=== PATIENT | female | born 1970 | race Caucasian/White ===

== ENCOUNTER 2020-04-13 11:21 | Emergency (ER) | payer OTHER, SELFPAY ==
--- NOTE | ~2020-04-13 | XR_ITS ---
EXAMINATION: XR knee LT 3V DATE: 04/13/2020 11:53 INDICATION: Left knee pain. TECHNIQUE: 3 views of left knee were obtained. COMPARISON: None. FINDINGS: Bone alignment is normal. There is a nondisplaced avulsion fracture of the intercondylar em inence of proximal tibia with involvement of the medial condyle articular surface. There is mild tric ompartmental osteoarthritis. There is a large knee joint effusion. IMPRESSION: 1. Nondisplaced avulsion fracture of the intercondylar eminence of proximal tibia with involvement of the medial condyle articular surface. 2. Mild left knee osteoarthritis. 3. Large knee joint effusion. Reviewed, dictated and finalized at location A. IMPRESSION: 1. Nondisplaced avulsion fracture of the intercondylar eminence of proximal tib ia with involvement of the medial condyle articular surface. 2. Mild left knee osteoarthritis. 3. Large knee joint effusion.
[2020-04-13 11:28] VITALS: BP 164/86; PULSE 76; RESP 18; TEMP 36.7; O2SAT 97
--- NOTE | 2020-04-13 11:39 | ED.GENADULT ---
HPI - General Adult General Chief complaint: Extremity Injury, Lower Stated complaint: knee injury Time Seen by Provider: 04/13/20 11:31 Source: patient Mode of arrival: ambulatory Limitations: no limitations History of Present Illness HPI narrative: Patient is a 50-year-old female who was knocked down by her dog just prior to arrival injuring the left knee noting that she is now having difficulty bearing weight pain decreases with rest and inactivity but worsens with activity and movement. Patient denies other injury or complaint has not anything for pain and on arrival is in the room in no distress Related Data Home Medications Medication Instructions Recorded Confirmed hydrochlorothiazide 04/13/20 losartan-hydrochlorothiazide tablet 04/13/20 sertraline mg 04/13/20 simvastatin mg 04/13/20 Allergies Allergy/AdvReac Type Severity Reaction Status Date / Time No Known Allergies Allergy Mild Unverified 04/13/20 11:33 Review of Systems Review of Systems: All systems reviewed & are unremarkable except as noted in HPI and below PMFSH Past Medical History Medical History (Updated 04/13/20 @ 14:16 by Mehdi Mustafa PA-C) Obese Social History Social History (Updated 04/13/20 @ 11:41 by Mehdi Mustafa PA-C) Smoking status: Never smoker Gender identity (if verbalized by the patient): Female Exam Narrative: Exam Narrative: GENERAL: Well-appearing, well-nourished, and in no acute distress. HEAD: Normocephalic, atraumatic. EYES: PERRLA and EOMI. ENT: Nares clear, no rhinorrhea or epistaxis. Mucous membranes moist. EXTREMITIES: Tenderness of the left knee joint no deformities noted SKIN: Warm, dry, no rash. NEURO: No focal deficits. Alert and oriented x3. Neurovascularly intact PSYCH: Normal mood and affect. Course Course Emergency Course: Patient in the room at this time aware of case findings treatment plan diagnosis placed in immobilizer will follow with orthopedic surgery Consultations Consultation #1: Discussed case with orthopedic surgery who will follow patient in clinic Date: 04/13/20 Time: 14:16 Vital Signs Vital signs: Vital Signs Temperature 98.1 F 04/13/20 11:28 Pulse Rate 76 04/13/20 11:28 Respiratory Rate 18 04/13/20 11:28 Blood Pressure 164/86 H 04/13/20 11:28 Pulse Oximetry 97 04/13/20 11:28 Temperature 98.1 F 04/13/20 11:28 Pulse Rate 76 04/13/20 13:09 Respiratory Rate 18 04/13/20 13:09 Blood Pressure 138/90 04/13/20 13:09 Pulse Oximetry 97 04/13/20 13:09 Medical Decision Making MDM Narrative Medical decision making narrative: Patients injury or pain is consistent with musculoskeletal etiology. No signs of neurological or vascular compromise on exam. Compartments and tisues are soft without signs of compartment syndrome. Pain is felt appropriate for further evaluation on an outpatient basis. Patient will follow with orthopedic surgery Vital Signs Vital Signs: Vital Signs Temperature 98.1 F 04/13/20 11:28 Pulse Rate 76 04/13/20 11:28 Respiratory Rate 18 04/13/20 11:28 Blood Pressure 164/86 H 04/13/20 11:28 Pulse Oximetry 97 04/13/20 11:28 Temperature 98.1 F 04/13/20 11:28 Pulse Rate 76 04/13/20 13:09 Respiratory Rate 18 04/13/20 13:09 Blood Pressure 138/90 04/13/20 13:09 Pulse Oximetry 97 04/13/20 13:09 Discharge Plan Discharge Clinical Impression: Closed fracture of left knee region Patient Disposition: Home, Self-Care Condition: Stable Instructions: Antibiotic Form, Leg Fracture (ED) Additional Instructions: Wear brace and use crutches. No weight on the affected leg. Pain medication as needed and directed. Follow-up with orthopedic surgery in the next 3 days to set up for reevaluation. Return if symptoms worsen or concerns or any increase in redness swelling pain or fever over 100.5 or any loss of feeling or function in the extremity. Rest and elevation of the extremity above
[2020-04-13 13:09] VITALS: BP 138/90; PULSE 76; RESP 18; O2SAT 97
[2020-04-13 15:02] VITALS: BP 138/75; PULSE 78; RESP 16; O2SAT 100
== END 2020-04-13 15:03 | disposition home or self-care (01) ==
PROVIDERS: Emergency Provider Emergency Medicine; PCP Internal Medicine
DX: S82.115A Nondisplaced fracture of left tibial spine, initial encounter for closed fracture (principal); M17.12 Unilateral primary osteoarthritis, left knee; E66.9 Obesity, unspecified; Z68.32 Body mass index [BMI] 32.0-32.9, adult; W54.1XXA Struck by dog, initial encounter
CPT/HCPCS: 73562; 99284

== ENCOUNTER 2020-07-13 08:15 | Outpatient (RCR) | payer OTHER, SELFPAY ==
--- NOTE | 2020-06-15 10:08 | PTOPEVAL ---
Thank you for referring Wendi Ramirez to [facility].? The patient is scheduled to be seen for therapy? 2-3 x/week for 6 weeks. Please review, sign, date and return this plan of care TOMY. I agree with and certify that the following plan of care is medically necessary. Referring Physician Date Attending Provider: Honorio Gaona MD *PT Outpatient Evaluation Start: 06/15/20 08:54 Freq: Status: Active Protocol: Document 06/15/20 08:55 DEMETRI (Rec: 06/15/20 09:48 DEMETRI [id number]) Therapy Assessment Status Assessment Status Assessment Status Evaluation Outpatient Past Medical History Past Medical History Source of Past Medical History Patient,Recalled from Previous Visit, Confirmed with Patient /Family Neurological History Hx Neurological Disorders No Significant History Cardiovascular History Hx Hypertension Yes Respiratory History Hx Respiratory Disorders No Significant History Gastrointestinal History Hx Gastrointestinal Disorders No Significant History Genitourinary History Hx Genitourinary Disorders No Significant History Musculoskeletal History Hx Orthopedic Surgery Yes: RTC tear with s/p shoulder SX Hematological History Hx Hematological Disorders No Significant History Endocrine History Hx Endocrine Disorders No Significant History Evaluation Information Problem Diagnosis left tibia Fx, MCL tear Onset 04/13/20 Additional Evaluation Detail She was in an immobilizer for 6 wks. She walked into therapy with 1 crutch on left side Subjective Information She was hit in the leg by her Query Text:As Reported By Patient/ dog hitting her left knee, Family then she landed on left knee on the ground. She went to ER due to knee feeling unstable. She was in the knee brace, WBAT and crutches for 6 wks. She has progressed herself to 1 crutch. She cont to have stiffness, decreased knee motion, and difficulty with standing and walking. She is limiting WB on left LE with steps. 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 She has not tried damien
--- NOTE | 2020-06-18 15:57 | PCPTNOTE ---
Patient called & cancelled scheduled appointment this date due to unable to schedule transportation for granddaughter.
--- NOTE | 2020-07-11 11:24 | PCPTNOTE ---
pt cancelled her re-eval today and rescheduled for 06/12/20.
--- NOTE | 2020-07-13 08:55 | PTOPEVAL ---
Thank you for referring Wendi Ramirez to [facility].? Pt has been seen for 7 therapy visits to address impairments related to knee/leg injury. She demonstrates improved LE strength, knee range and performance with functional task. She achieved 90% of her therapy goals at this time. She is indep with her HEP and performing desired daily activities DC skilled therapy services at this time. Please review, sign, date and return this plan of care TOMY. I agree with and certify that the following plan of care is medically necessary. Referring Physician Date Admitting Provider: Attending Provider: Honorio Gaona MD Referring Provider: *PT Outpatient Evaluation Start: 06/15/20 08:54 Freq: Status: Active Protocol: Document 07/13/20 08:16 DEMETRI (Rec: 07/13/20 08:55 DEMETRI [id number]) Therapy Assessment Status Assessment Status Assessment Status Re-evaluation/Discharge Note Evaluation Information Problem Diagnosis left tibia Fx, MCL tear Onset 04/13/20 Additional Evaluation Detail She was in an immobilizer for 6 wks. 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 Subjective Information She reports stiffness in the Query Text:As Reported By Patient/ morning. She is walking Family without restrictions, no problems with steps or outside walking. 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 She denies any problems with yardwork yet . She report occasional swelling on top of knee region at night, but improved with ice and elevation. Pain Assessment Timing of Pain Assessment Timing of Pain Assessment Re-assessment Pain Scale Pain Scale Used Numeric (1 - 10) Self Report Pain Assessment Left Knee(s) Reported Pain Level 0 Pain Score Pain Score 0: Self Report Lower Extremity Range of Motion Knee Range of Motion Left Knee Flexion Range of Motion - Active 110 Knee Extension Range of Motion - Passive 0 Knee Range of Motion Limitations Edema,Pain,Soft Tissue Restriction Lower Extremity Muscle Strength Testing Hip Strength Left Hip Flexion Strength 5 Normal Hip Extension Strength 5 Normal Hip Abduction Strength 4- Good - Knee Strength Left Knee Flexion Strength 5 Normal Knee Extension Strength 5 Normal Extremity Circumference Assess
== END 2020-07-13 11:00 | disposition home or self-care (01) ==
LOC: ANHPT 08:15
PROVIDERS: PCP Internal Medicine; Visit Provider Orthopaedic Surgery
DX: S82.202D Unspecified fracture of shaft of left tibia, subsequent encounter for closed fracture with routine healing (principal)
CPT/HCPCS: 97110; 97112; 97140; 97161

== ENCOUNTER 2020-12-20 11:57 | Emergency (ER) | payer OTHER, SELFPAY ==
--- NOTE | ~2020-12-20 | XR_ITS ---
EXAMINATION: XR shoulder RT min 2V EXAM DATE: 12/20/2020 12:53 INDICATION: Initial encounter following injury, with pain of the right shoulder. TECHNIQUE: The following right shoulder projections obtained: frontal projection with internal rotati on, frontal projection with external rotation, Grashey, and scapular Y view (4+ views). There is no prior study for comparison. FINDINGS: There are no acute fractures identified. 2 metallic foreign bodies which are most likely ro tator cuff repair anchors, one within the right humeral head as would be expected, the other projecti ng between the humeral head in the acromion, likely dislodged from intended intraosseous location. Un certain whether or not this is acute or chronic finding. Wide appearing acromioclavicular joint which could also be postoperative. IMPRESSION: 1. Suspect dislodged right rotator cuff repair anchor, age indeterminate. 2. No fracture. Reviewed, dictated and finalized at location A.
[2020-12-20 12:24] VITALS: BP 140/72; PULSE 67; RESP 18; TEMP 36.2; O2SAT 97
--- NOTE | 2020-12-20 13:22 | ED.UPPEXIN ---
HPI - Extremity Injury (Upper) General Chief Complaint: Extremity Injury, Upper Stated Complaint: Rt arm injury Time Seen by Provider: 12/20/20 12:42 Source: patient Mode of arrival: ambulatory Limitations: no limitations History of Present Illness HPI narrative: This is a 50 year old female that presents to the ER for right shoulder pain after an injury today. Reports she tripped and fell. She caught herself with her right wrist. Reports since she has had right shoulder pain. Reports history of rotator cuff repair to this shoulder a couple of years ago. Reports pain feels similar to when her rotator cuff was acting up. Reports decreased ROM due to pain. Denies hitting her head, loss of consciousness, other injuries, or numbness. Related Data Home Medications Medication Instructions Recorded Confirmed hydrochlorothiazide 04/13/20 05/31/20 sertraline mg 04/13/20 05/31/20 simvastatin mg 04/13/20 05/31/20 aspirin 81 mg tablet,delayed 81 mg PO DAILY 04/17/20 05/31/20 release losartan 50 mg tablet 50 mg PO DAILY 04/17/20 05/31/20 Allergies Allergy/AdvReac Type Severity Reaction Status Date / Time No Known Allergies Allergy Mild Unverified 04/13/20 11:33 Review of Systems Review of Systems: Narrative: CONSTITUTIONAL: Denies fever MUSCULOSKELETAL: Reports joint pain, and myalgia. NEUROLOGIC: Denies numbness All systems reviewed & are unremarkable except as noted in HPI and below PMFSH Past Medical History Medical History Hypertension Obese Family History Family History Other Alzheimer disease Lupus Migraine Social History Social History Smoking status: Never smoker Gender identity (if verbalized by the patient): Female Exam Narrative: Exam Narrative: GENERAL: Well-appearing, well-nourished, and in no acute distress. HEAD: Normocephalic, atraumatic. EYES: EOMI. CHEST: Clear to auscultation. No respiratory distress. No wheezes rales or rhonchi HEART: Regular rate and rhythm. No murmur heard. Normal peripheral pulses. EXTREMITIES: Normal range of motion, except decreased active range of motion of the right shoulder due to pain. No edema or obvious deformity. Normal sensation. Normal radial pulses SKIN: Warm, dry, no rash. NEURO: No focal deficits. Alert and oriented x3. PSYCH: Normal mood and affect Course Consultations Consultation #1: Spoke with Dr. Garcia about patient and work-up. Would like patient placed in a sling and will follow-up in clinic. Date: 12/20/20 Time: 13:48 Vital Signs Vital signs: Vital Signs Temperature 97.1 F L 12/20/20 12:24 Pulse Rate 67 12/20/20 12:24 Respiratory Rate 18 12/20/20 12:24 Blood Pressure 140/72 12/20/20 12:24 Pulse Oximetry 97 12/20/20 12:24 Temperature 97.1 F L 12/20/20 12:24 Pulse Rate 67 12/20/20 12:24 Respiratory Rate 18 12/20/20 12:24 Blood Pressure 140/72 12/20/20 12:24 Pulse Oximetry 97 12/20/20 12:24 MDM - Extremity Injury (Upper) MDM Narrative Medical decision making narrative: Patient presents to the emergency department for right shoulder pain after a fall today. Right shoulder x-ray shows a dislodged rotator cuff repair anchor. No fractures. Spoke with Dr. Garcia about patient and work-up. Would like patient placed in a sling and will follow-up in clinic. Patient is stable and felt appropriate for further outpatient evaluation. She was given warnings to return to the ER Imaging Data Radiologist's impression: ITS Impressions Shoulder X-Ray 12/20/20 12:58 IMPRESSION: 1. Suspect dislodged right rotator cuff repair anchor, age indeterminate. 2. No fracture. Critical Care Time Critical Care Time Critical Care Time: No Discharge Plan Discharge Clinical Impression: Disorder of right rotator cuff Patient
[2020-12-20 13:54] VITALS: BP 122/78; PULSE 78; RESP 18; O2SAT 99
== END 2020-12-20 13:56 | disposition home or self-care (01) ==
PROVIDERS: Emergency Provider Emergency Medicine; PCP Internal Medicine
DX: M25.511 Pain in right shoulder (principal); T84.120A Displacement of internal fixation device of right humerus, initial encounter; I10 Essential (primary) hypertension; E66.9 Obesity, unspecified; Z68.32 Body mass index [BMI] 32.0-32.9, adult; Z79.82 Long term (current) use of aspirin; W01.0XXA Fall on same level from slipping, tripping and stumbling without subsequent striking against object, initial encounter
CPT/HCPCS: 73030; 99283; A4565

== ENCOUNTER 2021-09-10 09:02 | Emergency (ER) | payer OTHER, SELFPAY ==
--- NOTE | 2021-09-10 09:05 | ED.EYEPROB ---
HPI - Eye Problem General Chief complaint: Eye Problems Stated complaint: left eye red Time Seen by Provider: 09/10/21 09:05 Source: patient and RN notes reviewed History of Present Illness HPI Narrative: Patient is a 51-year-old female who presents the urgent care with complaints of left eye redness and irritation. Patient states that it started approximately 9 days ago and she has been taking Benadryl and using [id number] Visine without much relief. Patient states that she has some blurry vision but is able to see out of the eye. Denies of any known trauma or injury to the eye. Denies of any matting. No other acute complaints. No acute distress noted. Patient aware of the plan of care. Some parts of this dictation were generated by voice recognition software and may contain typographical and/or grammatical inaccuracies. Related Data Home Medications Medication Instructions Recorded Confirmed hydrochlorothiazide 12.5 mg PO DAILY 04/13/20 05/31/20 sertraline 100 mg PO DAILY 04/13/20 09/10/21 simvastatin 40 mg PO DAILY 04/13/20 09/10/21 aspirin 81 mg tablet,delayed 81 mg PO DAILY 04/17/20 09/10/21 release losartan 50 mg tablet 50 mg PO DAILY 04/17/20 09/10/21 Allergies Allergy/AdvReac Type Severity Reaction Status Date / Time No Known Allergies Allergy Mild Unverified 04/13/20 11:33 Review of Systems Review of Systems: CONSTITUTIONAL: Denies fever, chills, or sweats. EYES: Reports of irritation and redness to the left eye ENT: Denies rhinorrhea, congestion, sore throat, or otalgia. CARDIOVASCULAR: Denies chest pain, palpitations, or edema. RESPIRATORY: Denies cough or dyspnea. GASTROINTESTINAL: Denies abdominal pain, nausea, vomiting, or diarrhea. GENITOURINARY: Denies dysuria or hematuria. SKIN: Denies rash or itching. MUSCULOSKELETAL: Denies back pain, joint pain, or myalgia. NEUROLOGIC: Denies headache, numbness, or weakness. All other systems reviewed are negative, except as documented in HPI. [facility] Past Medical History Medical History Hypertension Obese Family History Family History Other Alzheimer disease Lupus Migraine Social History Social History Smoking status: Never smoker Gender identity (if verbalized by the patient): Female Comments At the time of my signature, I reviewed and agree with the nursing past medical, surgical, social, and family history. There is no relevant family history pertinent to the patient complaint. Exam Narrative: GENERAL: This is a well-nourished, well-developed patient, in no apparent distress. HEAD: normocephalic, atraumatic. EYES: PERRL. right Sclera clear/white. mild to moderate left injected conjunctiva and sclera. no obvious trauma or injury. Vision is grossly intact. EARS: External ears normal, auditory canals clear and without drainage, TMs normal without perforation. Hearing grossly intact. NOSE: External nose normal with no obvious nasal discharge, nares without redness, no rhinorrhea. THROAT: Mucous membranes moist NECK: Neck supple CARDIOVASCULAR: Regular rate and rhythm without murmurs, gallops, or rubs. RESPIRATORY: Clear to auscultation. Breath sounds equal bilaterally. No wheezes, rales, or rhonchi. SKIN: warm, intact with no suspicious lesions or rash, good texture and turgor. NEURO: awake, alert, and oriented to person, place and time. There were no obvious focal neurologic abnormalities. EXTREMITIES: No clubbing, cyanosis, or edema. Course Course Level of Care: Express Care Visit Vital Signs Vital signs: Vital Signs Temperature 97.6 F 09/10/21 09:21 Pulse Rate 68 09/10/21 09:21 Respiratory Rate 18 09/10/21 09:21 Blood Pressure 131/82 09/10/21 09:21 Pulse Oximetry 99 09/10/21 09:21 Temperature 97.6 F 09/10/21 09:21 Pulse Rate 68 09/10/21
[2021-09-10 09:21] VITALS: BP 131/82; PULSE 68; RESP 18; TEMP 36.4; O2SAT 99
== END 2021-09-10 10:07 | disposition home or self-care (01) ==
PROVIDERS: Emergency Provider Nurse Practitioner Family; PCP Internal Medicine
DX: H10.9 Unspecified conjunctivitis (principal); I10 Essential (primary) hypertension; E66.9 Obesity, unspecified; Z68.32 Body mass index [BMI] 32.0-32.9, adult
CPT/HCPCS: 99213; G0463

== ENCOUNTER 2025-07-25 10:35 | Emergency (ER) | payer OTHER, SELFPAY ==
--- NOTE | ~2025-07-25 | XR_ITS ---
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 Findings: No acute fracture or malalignment. No significant degenerative changes. Soft tissues unremarkable. Impression: No acute fracture or malalignment. Reviewed, dictated and finalized at location P. AGING ENGINEER Impression: No acute fracture or malalignment.
[2025-07-25 10:45] VITALS: BP 142/79; PULSE 72; RESP 16; TEMP 36.1; O2SAT 98
--- OUTSIDE RECORDS SUMMARY | 2025-07-25 11:31 | XMS_ITS | Clinical Summary ---
Author Organization [facility] Address [address] [place] [address] Care Team Providers Care Sales Rep Name Role Phone Kelsie Huffman MD Primary Care Provider [phone] Source Comments [facility],non-[facility] Affiliates and Associated Physician Practices is amultiple site organization consisting of ambulatory clinics and hospital sitesin [place], [place], [place] and [place]. This disclosure is being madepursuant to the Care Everywhere program and may not contain all information available regarding this patient. Last updated 18.[facility] License [employer]dy Allergies Active Allergy Reactions Criticality Noted Date Comments Egg Shells Diarrhea High 10/06/2019 Medications * Be aware that medications may not be up to date on this document. Alwaysverify current medications with the patient. hydroCHLOROthia zide (HYDRODIURIL) 12.5 MG TABS hydrochlorot tab 12.5mghydrochlor othiazide Active losartan (COZAAR) 50 MG tablet losartan potassium/hydroc hlorothiazide 50-12.5 mg tabs Active sertraline (ZOLOFT) 100 MG tablet sertraline hcl 100 mg tabs Active simvastatin (ZOCOR) 40 MG tablet simvastatin tab 40mgsimvastatin Active metFORMIN (Glucophage) 500 MG tablet Take 1 (one) tablet by mouth once daily 3 Active tiZANidine (Zanaflex) 4 MG tablet Take 1 (one) tablet by mouth 2 times daily Active aspirin EC (Ecotrin) 81 MG tablet Take 1 (one) tablet by mouth once daily Active artificial tears ophthalmic solution 1 (one) drop 3 times daily as needed Active Immunizations Immunization Administration Dates Next Due FLU VACCINE QUAD IIV4 SPLIT 0.25 ML IM 06/02/2019,06/23/2018,05/19/2017,2015 TDAP (7yrs+) 11/27/2014 Family History Medical History Relation Name Comments Alzheimer's Disease Father Lupus Sister Relation Name Status Comments Father Sister Social History Tobacco Use Types Packs/Day Years Used Date Smoking Tobacco: Never Smokeless Tobacco: Never Tobacco Cessation:Counseling Given: Not Answered PHQ-2 Answer Date Recorded PHQ2 TOTAL SCORE 2 10/01/2022 Comments No Sex and Gender Information Value Date Recorded Sex Assigned at Not on file Legal Sex Female 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 Gender Identity Not on file Sexual Orientation Not on file Last Filed Vital Signs Vital Sign Reading Time Taken Comments Blood Pressure 118/74 10/01/2022 8:19 AM OVEN HEATER HELPER Pulse 100 10/01/2022 8:19 AM OVEN HEATER HELPER Temperature 36.9 C (98.4 F) 10/01/2022 8:19 AM OVEN HEATER HELPER Respiratory Rate - - Oxygen Saturation 96% 10/01/2022 8:19 AM OVEN HEATER HELPER Inhaled Oxygen Concentration - - Weight 83.1 kg (183 lb 3.2 oz) 10/01/2022 8:19 A M OVEN HEATER HELPER Height 157.5 cm (5' 2) 10/06/2019 8:36 AM OVEN HEATER HELPER Body Mass Index 33.51 10/06/2019 8:36 AM OVEN HEATER HELPER Plan of Treatment Health Maintenance Due Date Last Done Comments COLOGUARD (AGES 45-75) - COLON CA SCREENING 1968 COLON MONITORING 1968 COLONOSCOPY - COLON CA SCREENING 1968 CT COLONOGRAPHY - COLON CA SCREENING 1968 Colorectal Cancer Screening 1968 FIT - COLON CA SCREENING 1968 FLEX SIG - COLON CA SCREENING 1968 MAMMOGRAM 1968 HIV SCREENING 02/25/1983 HEPATITIS C SCREENING 02/21/1986 HEPATITIS B VACCINE (1 of 3 - 19+ 3-dose series) 02/25/1987 Cervical Cancer Screening 02/25/1989 PAP SMEAR 02/25/1989 PAP with HPV 02/25/1998 PNEUMOCOCCAL VACCINE 50+ (1 of 1 - PCV) 02/25/2018 ZOSTER VACCINE (1 of 2) 02/25/2018 DEPRESSION SCREENING 08/24/2024 10/01/2022 DTAP/TDAP/TD VACCINES (2 - Td or Tdap) 11/27/2024 11/27/2014 COVID-19 VACCINE ( season) 2025 09/04/2021 INFLUENZA VACCINE (#1) 2025 , 07/03/2020, 06/02/2019, Additional history exists HIB VACCINE Aged Out No longer eligi ble based on patient's age to complete this topic HPV VACCINE Aged Out No longer eligi ble based on patient's age to complete this topic MENINGOCOCCAL (Group B) VACCINE SHARED DECISION-MAKING Aged Out No longer eligible based on patient's age to complete this topic MENINGOCOCCAL GROUPS A/C/Y/W VACCINE Aged Out No longer eligible based on patient's age to complete this topic Insurance Care Teams Sales Rep Relationship Specialty Start Date End Date Kelsie Huffman MD [address] [place] [phone] PCP - General 08/12/19
--- OUTSIDE RECORDS SUMMARY | 2025-07-25 11:31 | XMS_ITS | Encounter Summary ---
Author Organization [facility] Address [address] [place] [address] Care Team Providers Care Plant Anatomy Teacher Name Role Phone Hannah Perez TELEGRAPH MESSENGER Primary Care Provider Reason for Visit * Reason Onset Date Comments Scheduling Appointments 12/31/2020 Confirmi ng mammogram appt- no answer Encounter Details Date Type Department Care Team (Late st Contact Info) Description 12/31/2020 Telephone [facility] [address] [place] [phone] Lori Mercado RT Scheduling Appointments (Confirming mammogram appt- no answer ) Social History Tobacco Use Types Packs/Day Years Used Date Smoking Tobacco: Never Comments Unknown Sex and Gender Information Value Date Recorded Sex Assigned at Not on file Legal Sex Female 1:17 AM 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
--- OUTSIDE RECORDS SUMMARY | 2025-07-25 11:31 | XMS_ITS | Clinical Summary ---
Author Organization [facility] [address] Address [address] [place] [address] Phone Care Team Providers Care Separator Inserter Name Role Phone Hannah Perez PHYSICAL MEDICINE SPECIALIST Primary Care Provider Allergies Active Allergy Reactions Criticality Noted Date Comments Egg Diarrhea High 10/06/2019 Medications aspirin 81 mg enteric coated tablet Take 81 mg by mouth daily Active hydroCHLOROthia zide (HYDRODIURIL) 12.5 mg tablet Take 12.5 mg by mouth daily 11/23/2020 Active losartan (COZAAR) 50 mg tablet Take 50 mg by mouth daily 11/23/2020 Active sertraline (ZOLOFT) 100 mg tablet Take 100 mg by mouth daily 11/19/2020 Active tiZANidine (ZANAFLEX) 4 mg tablet Take 4 mg by mouth 2 (two) times a day 10/24/2020 Active simvastatin (ZOCOR) 40 mg tablet Take 40 mg by mouth nightly at bedtime. 11/23/2020 Active metFORMIN (GLUCOPHAGE) 500 mg tablet Take 500 mg by mouth daily 10/27/2020 Active Active Problems Problem Noted Date Diagnosed Date Family history of colon cancer in father 021 Overview (06/25/2021): Added automatically from request for surgery [id number] Encounter for screening colonoscopy 06/25/2021 Overview (06/25/2021): Added automatically from request for surgery [id number] Encounters Date Type Department Care Team Description 06/12/2025 11:08 AM CDT - 06/12/2025 11:59 PM CDT Hospital Encounter [facility] [address] [place] [address] Abdominal hernia without obstruction and without gangrene, recurrence not specified, unspecified hernia type Discharge Disposition: Discharge to home or self care from Last 3 Months Surgical History Surgery Date Site/Laterality Comments ROTATOR CUFF REPAIR TUBAL LIGATION ABLATION Uterine Medical History Medical History Date Comments Hypertension Hypercholesteremia Osteoarthritis Depression Type 2 diabetes mellitus Family History Medical History Relation Name Comments Colon cancer Father Alzheimer's disease Other Arthritis Other Gout Other Heart disease Other Hypertension Other Breast cancer Neg Hx Ovarian cancer Neg Hx Thyroid cancer Neg Hx Relation Name Status Comments Father Other Social History Tobacco Use Types Packs/Day Years Used Date Smoking Tobacco: Never Smokeless Tobacco: Never AUDIT-C Answer Date Recorded Q1: How often do you have a drink containing alc ohol? Never 11/14/2021 Average Number of Drinks Not on file 022 Q3: How often do you have si x or more drinks on one occasion? 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 Gender Identity Not on file Sexual Orientation Not on file Obstetrics History Para Term AB IAB SAB Ectopic Multiple Livin g Live Births 6 3 3 Date Outcome GA Total Labor Labor/2nd/3rd Weight Sex Type Anes PTL Janeth A1 A5 Name Clin Term Term Term Last Filed Vital Signs Vital Sign Reading Time Taken Comments Blood Pressure 132/98 11/14/2021 11:47 AM CDT Pulse 57 11/14/2021 11:47 AM CDT Temperature 36.8 C (98.3 F) 11/14/2021 11:47 AM CDT Respiratory Rate 18 11/14/2021 11:47 AM CDT Oxygen Saturation 99% 11/14/2021 11:47 AM CDT Inhaled Oxygen Concentration - - Weight 81.6 kg (180 lb) 11/14/2021 9:32 AM CDT Height 157.5 cm (5' 2) 11/14/2021 9:32 AM CDT Body Mass Index 32.92 11/14/2021 9:32 AM CDT Plan of Treatment Health Maintenance Due Date Last Done Comments Cervical Cancer Screening 1970 Depression Screening 1970 Hepatitis C Screening 1970 Hepatitis B Screening 02/25/1986 Regular Well Visit/Exam 18-64 02/25/1986 Zoster Vaccine (1 of 2) 02/25/2018 Breast Cancer Screening-Mammogram 03/20/2023 03/20/2022, 01/01/2021, 03/29/2019, Additional history exists DTaP/Tdap/Td Vaccine (2 - Td or Tdap) 11/27/2024 11/27/2014 Covid-19 Vaccine (2 - season) 2025 09/04/2021 Influenza Vaccine (#1) 2025 , 07/03/2020, 06/02/2019, Additional history exists Colon Cancer Screening-Colonoscopy 11/15/2031 11/14/2021 Colon Cancer Screening-CT Colonography Discontinued 11/14/2021 Colon Cancer Screening-DNA Stool Discontinued 11/14/2021 Colon Cancer Screening-FIT Discontinued 11/14/2021 Colon Cancer Screening-Sigmoidoscopy Discontinued 11/14/2021 Pneumococcal vaccine <65 Aged Out No longer eligible based on patient's age to complete this topic Procedures Procedure Name Priority Date/Time Associated Diagnosis Comments US ABDOMEN LIMITED Schedule Routine, Read Routine (OP Routine) 06/12/2025 12:05 PM CDT Abdominal hernia without obstruction and without gangrene, recurrence not specified, unspecified hernia type SCREENING MAMMOGRAM BILATERAL W JUANJOSE Schedule Routine, Read Routine (OP Routine) 03/20/2022 2:20 PM CDT Screening mammogram, encounter for COLONOSCOPY 11/14/2021 9:18 AM CDT from Last 3 Months or Most Recently Relevant to Health Maintenance Results * US Abdomen Limited (06/12/2025 12:05 PM CDT) Anatomical Region Laterality Modality Abdomen N/A Ultrasound 06/12/2025 12:2 3 PM CDT Narrative 06/12/2025 12:24 PM CDT EXAM DESCRIPTION: US ABDOMEN LIMITED REASON FOR STUDY: K46.9 TECHNIQUE: A Dynamic assessment was performed of the umbilicus by the general ledger accountant, with selected grayscale and color Doppler images acquired and recorded in PACS. COMPARISON: None FINDINGS: SKIN AND SUBCUTANEOUS TISSUES: There is a ventral defect 4 cm above the umbilicus with protrusion of echogenic material compatible with a fat containing supraumbilical ventral hernia. DEEP SOFT TISSUES/MUSCLES: No masses. No fluid collections. No edema. OTHER: No other significant finding. IMPRESSION: 1. Supraumbilical fat containing ventral hernia. THIS IS AN ELECTRONICALLY VERIFIED FINAL REPORT 06/12/2025 12:24 PM - Electronically signed by Yasir Aguilar M.D. JA: KATINA Report ID: [id number] Reading Location: [id number] Procedure Note Yasir Aguilar MD - 06/12/2025 EXAM DESCRIPTION: US ABDOMEN LIMITED REASON FOR STUDY: K46.9 TECHNIQUE: A Dynamic assessment was performed of the umbilicus by the general ledger accountant, with selected grayscale and color Doppler images acquired and recorded in PACS. COMPARISON: None FINDINGS: SKIN AND SUBCUTANEOUS TISSUES: There is a ventral defect 4 cm above the umbilicus with protrusion of echogenic material compatible with a fat containing supraumbilical ventral hernia. DEEP SOFT TISSUES/MUSCLES: No masses. No fluid collections. No edema. OTHER: No other significant finding. IMPRESSION: 1. Supraumbilical fat containing ventral hernia. THIS IS AN ELECTRONICALLY VERIFIED FINAL REPORT 06/12/2025 12:24 PM - Electronically signed by Yasir Aguilar M.D. JA: KATINA Report ID: [id number] Reading Location: [id number] us Not In File Miscellaneous IMG US PROCEDURES Judie l Result * (ABNORMAL) Screening Mammogram Bilateral W Juanjose (03/20/2022 2:20 PM CDT) Anatomical Region Laterality Modality Breast Bilateral Mammography 03/20/2022 2:47 PM CDT Impressions 03/20/2022 2:47 PM CDT 1. Indeterminate left breast asymmetry. Recommend left breast diagnostic mammogram and possible ultrasound for further evaluation. The patient will be contacted. 2. No mammographic evidence of malignancy in the right breast. Recommend screening mammography of the right breast in one year. BI-RADS: 0 - Additional imaging evaluation is necessary. Electronically signed by: Maurice Mathew M.D. Narrative 03/20/2022 2:47 PM CDT EXAMINATION: SCREENING MAMMOGRAM BILATERAL W JUANJOSE ORDERING HEALTHCARE PROVIDER: SELF SCREENING MAMMOGRAM HISTORY: Routine screening mammography. COMPARISON: 01/01/2021, 03/29/2019, 03/25/2018, 02/18/2017 TECHNIQUE: CC and MLO views of the bilateral breasts were obtained with digital technique using breast tomosynthesis with C view. Computer aided detection was utilized. FINDINGS: DENSITY: There are scattered fibroglandular elements in the bilateral breasts. BREASTS: There is left breast CC view asymmetry central to the nipple, posterior depth. There are no other suspicious findings in either breast evident by mammogram. us Self Screening Mammogram IMG MAMMO PROCEDURES Fi nal Result * COLONOSCOPY (11/14/2021 9:18 AM CDT) Anatomical Region Laterality Modality Other Narrative Procedure Note Curry Victoria MD - 11/14/2021 9:[address] [facility] Patient Name: Wendi Ramirez Procedure Date: 11/14/2021 9:18 AM Date of : 1970 Admit Type: Outpatient Age: 51 Gender: Female Attending MD: Curry Victoria M.D. Room: [facility] ENDOSCOPY ROOM 2 Note Status: Finalized Patient Profile: Refer to note in patient chart for documentation of history and physical. Procedure: Colonoscopy Indications: Screening for colorectal malignant neoplasm,Screening patient at increased risk: Family history of 1st-degree relative with colorectal cancer at age60 years (or older), This is the patient's first colonoscopy Referring MD: Kelsie Huffman M.D. Providers: Curry Victoria M.D. Impression: - Hemorrhoids found on perianal exam. - The entire examined colon is normal. - No specimens collected. Recommendation: - Discharge patient to home. - Resume previous diet. - Continue present medications. - Repeat colonoscopy in 5 years for surveillance. - Return to primary care physician as previously scheduled. Medicines: Propofol per Anesthesia Complications: No immediate complications. Estimated Blood Loss: Estimated blood loss: none. Procedure: Pre-Anesthesia Assessment: - This assessment was completed [Time ofAssessment] prior to the administration of sedation. The benefits, risks and alternatives of theprocedure and sedation were discussed and informed consentwas obtained. All questions were answered. Please referto the signed informed consent document in the medical record. The bowel preparation used was Miralax via single dose instruction. The bowel preparation used was bisacodyl tablets via single dose instruction.The scope was passed under direct vision. TheColonoscope [id number] was introduced through the anus and advanced to the the cecum, identified by appendiceal orifice and ileocecal valve. The colonoscopy was performed without difficulty. The patient tolerated the procedure well. The qualityof the bowel preparation was good. The ileocecalvalve, appendiceal orifice, and rectum werephotographed. Findings: Hemorrhoids were found on perianal exam. The colon (entire examined portion) appeared normal. Electronically signed by Curry Victoria M.D. Curry Victoria M.D. 11/14/2021 11:18:41 AM Number of Addenda: 0 Note Initiated On: 11/14/2021 9:18 AM Procedure Code(s): --- Professional --- G0105, Colorectal cancer screening; colonoscopy on individual at high risk Diagnosis Code(s): --- Professional --- K64.9, Unspecified hemorrhoids Z80.0, Family history of malignant neoplasm of digestive organs Z12.11, Encounter for screening for malignant neoplasm of colon CPT copyright 2020 [employer]. All rights reserved. The codes documented in this report are preliminary and upon commercial real estate appraiser reviewmay be revised to meet current compliance requirements. Recognized by the [employer] for promoting quality in endoscopy Curry Victoria MD ENDOSCOPY PROCEDURES Final Re sult from Last 3 Months or Most Recently Relevant to Health Maintenance Insurance [facility] [place] [address] [facility] HMO/POS Advance Directives For more information, please contact: [phone] * Full Code (Latest Code Status on File) Date Activated Date Inactivated Comments 11/14/2021 9:22 AM 11/14/2021 4:07 PM * Full Code Date Activated Date Inactivated Comments 11/14/2021 9:22 AM 11/14/2021 9:22 AM Care Teams Separator Inserter Relationship Specialty Start Date End Date Hannah Perez NP PCP - General Nurse Practitioner 05/30/25
--- OUTSIDE RECORDS SUMMARY | 2025-07-25 11:32 | XMS_ITS | Clinical Summary ---
Author Organization [facility] Address [address] [place] [address] Phone Care Team Providers Care Pourer Buggy Ladle Name Role Phone Kelsie Huffman MD Primary Care Provider [phone] Allergies No known active allergies Medications sertraline (ZOLOFT) 100 MG Tablet Take 100 mg by mouth daily. Active simvastatin (ZOCOR) 40 MG Tablet Take 40 mg by mouth daily. Active losartan-hydroch lorothiazide (HYZAAR) 50-12.5 MG Tablet Take 1 Tab by mouth daily. Active Aspirin 81 MG Tablet Take 81 mg by mouth daily. Active Potassium Gluconate (EQL POTASSIUM GLUCONATE) 595 (99 K) MG Tablet Take 1 Tab by mouth daily. Active [place]-3 Fatty Acids (OMEGA-3 FISH OIL) 1000 MG Capsule Take 1 Cap by mouth 3 times daily. Active Magnesium 250 MG Tablet Take 1 Tab by mouth daily. Active folic acid (FOLVITE) 400 MCG Tablet Take 400 mcg by mouth daily. Active BIOTIN FORTE PO Take 1,000 mcg by mouth daily. Active HYDROcodone-acet aminophen (NORCO) 5-325 MG Tablet Take 1-2 Tabs by mouth every 6 hours as needed for Pain. 40 Tab 07/01/2017 Active Active Problems No known active problems Family History Medical History Relation Name Comments Alzheimer's Disease Father Relation Name Status Comments Father Alive Mother Alive Social History Tobacco Use Types Packs/Day Years Used Date Smoking Tobacco: Never Smokeless Tobacco: Never Alcohol Use Standard Drinks/Week Comments No 0 (1 standard drink = 0.6 oz pur e alcohol) Comments No Sex and Gender Information Value Date Recorded Sex Assigned at Not on file Legal Sex Female 12:21 AM CDT Gender Identity Not on file Sexual Orientation Not on file Last Filed Vital Signs Vital Sign Reading Time Taken Comments Blood Pressure 128/79 10/01/2017 10:28 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 Pulse 72 10/01/2017 10:28 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 Temperature 36.2 C (97.1 F) 07/01/2017 2:45 PM CARBONATING STONE CLEANER Respiratory Rate 16 10/01/2017 10:28 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 Oxygen Saturation 97% 10/01/2017 10:28 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 Inhaled Oxygen Concentration - - Weight 93.4 kg (206 lb) 10/01/2017 10:28 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 Height 162.6 cm (5' 4) 10/01/2017 10:28 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 Body Mass Index 35.36 10/01/2017 10:28 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 Plan of Treatment Health Maintenance Due Date Last Done Comments Hepatitis C Virus (HCV) Screening 1970 Hepatitis B Immunization (1 of 3 - 19+ 3-dose series) 02/25/1987 Pap Smear 02/25/1989 Cervical Cancer Screening (CCS) 02/25/1998 HPV/Cotest 02/25/1998 Cologuard 02/25/2013 Colonoscopy 02/25/2013 Colorectal Cancer Screening 02/25/2013 Immunochemical Fecal Occult Blood 02/25/2013 Pneumococcal Immunization (50+ years) (1 of 1 - PCV) 02/25/2018 Zoster Immunization (1 of 2) 02/25/2018 Mammogram 03/29/2020 03/29/2019, 0809/2017, 02/18/2017, Additional history exists Influenza Immunization (#1) 04/24/202505/24, 06/23/2018, 05/19/2017, Additional history exists SARS-COV-2 Immunization (2024- season) 2025 09/04/2021, 03/06/2021, 02/13/2021 Respiratory Syncytial Virus (RSV) Immunization (Adult) (1 - 1-dose 75+ series) 02/25/2043 DTaP/Tdap/Td Immunization Discontinued 11/27/2014 TdaP Immunization Completed 11/27/2014 Human Papillomavirus (HPV) Immunization Aged Out No longer eligible based on patient's age to complete this topic Meningococcal Immunization (ACWY) Aged Out No longer eligible based on patient's age to complete this topic Rotavirus Immunization Aged Out No lo nger eligible based on patient's age to complete this topic Medical Devices Implanted Type Area Program Attendant Device Identifier Shelf Expiration Date Model / Serial / Lot Anch Sut Knotilus Loop 25mm - [id number] Implanted:Qty : 2 on 07/01/2017 by Bar Garcia MD at [facility] IMPLANT Right: Shoulder [employer] 09/23/2020 3910-500- 107 / 3910-500- 107 / [id number] Anch Sut Knotilus Loop 25mm - [id number] Implanted:Qty : 1 on 07/01/2017 by Bar Garcia MD at [facility] IMPLANT Right: Shoulder [employer] 05/23/2019 3910-500- 107 / 3910-500- 107 / [id number] Anch Sut 4.5mm Reelx Stt Kntls Shrp Tip - [id number] Implanted:Qty : 2 on 07/01/2017 by Bar Garcia MD at [facility] IMPLANT Right: Shoulder [employer] 04/18/2018 3910-600- 062 / 3910-600- 062 / [id number] Procedures Procedure Name Priority Date/Time Associated Diagnosis Comments ADONIS SCREENING BILATERAL DIGITAL W CAD W JEFRY Routine 03/29/2019 8:35 AM CDT Encounter for screening mammogram for malignant neoplasm of breast from Last 3 Months or Most Recently Relevant to Health Maintenance Results * ADONIS SCREENING BILATERAL DIGITAL W CAD W JEFRY (03/29/2019 8:35 AM CDT) Anatomical Region Laterality Modality breast Bilateral Mammography 03/29/2019 8:06 AM CDT Narrative 03/29/2019 10:33 AM CDT - ADONIS SCREENING BILATERAL DIGITAL W CAD W JEFRY BILATERAL DIGITAL SCREENING MAMMOGRAM 3D/2D WITH CAD WITH MEDIOLATERAL OBLIQUE CRANIOCAUDAL: 03/29/2019 The study was acquired using digital technology and interpreted from soft copy. Current study was also evaluated with ICAD version 7.2. CLINICAL: Routine screening. Patient has no complaints. No personal history of cancer. No family history of breast cancer. COMPARISONS: Comparison is made to exams dated: 03/25/2018, 02/18/2017, and 02/11/2016 [facility]. BREAST TISSUE:There are scattered fibroglandular densities in both breasts. FINDINGS: No significant masses, calcifications, or other findings are seen in either breast. There has been no significant interval change. IMPRESSION: BI-RAD 1 NEGATIVE There is no mammographic evidence of malignancy. A 1 year screening mammogram is recommended. The patient has been or will be contacted. The patient will be entered into a reminder system with a target due date of 1 year for her next screening exam. Electronically signed by: Annabelle guzman/silas:03/29/2019 09:50:04 [employer] Fscm Developer: Sheryl ARANDA)([place]), [facility] letter sent: Normal Exam Reading location: [facility] BI-RADS: 1 Negative Procedure Note Annabelle Rodriguez MD - 03/29/2019 - ADONIS SCREENING BILATERAL DIGITAL W CAD W JEFRY BILATERAL DIGITAL SCREENING MAMMOGRAM 3D/2D WITH CAD WITH MEDIOLATERAL OBLIQUE CRANIOCAUDAL: 03/29/2019 The study was acquired using digital technology and interpreted from soft copy. Current study was also evaluated with ICAD version 7.2. CLINICAL: Routine screening. Patient has no complaints. No personal history of cancer. No family history of breast cancer. COMPARISONS: Comparison is made to exams dated: 03/25/2018, 02/18/2017, and 02/11/2016 [facility]. BREAST TISSUE:There are scattered fibroglandular densities in both breasts. FINDINGS: No significant masses, calcifications, or other findings are seen in either breast. There has been no significant interval change. IMPRESSION: BI-RAD 1 NEGATIVE There is no mammographic evidence of malignancy. A 1 year screening mammogram is recommended. The patient has been or will be contacted. The patient will be entered into a reminder system with a target due date of 1 year for her next screening exam. Electronically signed by: Annabelle guzman/silas:03/29/2019 09:50:04 [employer] Fscm Developer: Sheryl MEJIA(R)(M), [facility] letter sent: Normal Exam Reading location: [place] BI-RADS: 1 Negative us Linda Gill MD IMG MAMMO ORDERABLES Fin al Result from Last 3 Months or Most Recently Relevant to Health Maintenance Insurance MEDICAID [employer] Care Teams Pourer Buggy Ladle Relationship Specialty Start Date End Date Kelsie Huffman MD [address] [place] [address] PCP - General Internal Medicine 01/22/16
--- NOTE | 2025-07-25 12:04 | ED.GENADULT ---
HPI - General Adult General Chief complaint: Fall Stated complaint: Fall Injury/ Right Arm/Rib Pain Source: patient Mode of arrival: ambulatory Limitations: no limitations History of Present Illness HPI narrative: Patient presents for evaluation after experiencing a fall yesterday. 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 She landed on her right side. She did not hit her head. No LOC. She reports pain in the right ribs. She denies SOB but states that pain is more noticeable with movement, deep inspiration and coughing. She leaned over her armrest and noted significant pain in the right ribs. She rates her pain as 5/10 in severity. She took aleve. She is not sure whether is alleviated her symptoms. She does not smoke or vape. Related Data Home Medications ?Medication ?Instructions ?Recorded ?Confirmed ?Last Taken ?Type hydrochlorothiazide 12.5 mg tablet 12.5 mg PO DAILY 04/13/20 05/31/20 Unknown History sertraline 100 mg tablet 100 mg PO DAILY 04/13/20 09/10/21 Unknown History simvastatin 40 mg tablet 40 mg PO DAILY 04/13/20 09/10/21 Unknown History losartan 50 mg tablet 50 mg PO DAILY 04/17/20 09/10/21 Unknown History ezetimibe 10 mg tablet mg 07/25/25 Unknown History tizanidine 4 mg tablet mg 07/25/25 Unknown History Allergies Allergy/AdvReac Type Severity Reaction Status Date / Time egg Allergy Unknown Unknown Verified 07/25/25 10:50 Review of Systems Review of Systems: CONSTITUTIONAL: Denies fever, chills, or sweats. EYES: Denies visual changes, redness, or discharge. ENT: Denies rhinorrhea, congestion, sore throat, or otalgia. CARDIOVASCULAR: Denies chest pain, palpitations, or edema. RESPIRATORY: Denies cough or dyspnea. GASTROINTESTINAL: Denies abdominal pain, nausea, vomiting, or diarrhea. GENITOURINARY: Denies dysuria or hematuria. SKIN: Denies rash or itching. MUSCULOSKELETAL: Reports right sided chest wall pain NEUROLOGIC: Denies headache, numbness, dizziness, or weakness. PSYCHIATRIC: Denies anxiety or depression. [facility] Past Medical History Medical History Hypertension Obese Family History Family History Other Alzheimer disease Lupus Migraine Social History Social History Smoking status: Never smoker Substance use: never Gender identity (if verbalized by the patient): Female Spiritual care concerns: No Exam Narrative: GENERAL: Well-appearing, well-nourished, and in no acute distress. HEAD: Normocephalic, atraumatic. EYES: PERRLA and EOMI. ENT: Nares clear, no rhinorrhea or epistaxis. Mucous membranes moist. Oropharynx without tonsillar hypertrophy exudate or other lesions. Bilateral TMs pearly galaviz nonbulging NECK: Supple. No adenopathy or masses. No carotid bruits or JVD CHEST: Clear to auscultation. No respiratory distress. No wheezes rales or rhonchi. There is tenderness over the right lateral ribs HEART: Regular rate and rhythm. No murmur heard. Normal peripheral pulses. ABDOMEN: Soft, nontender, nondistended, normal active bowel sounds. EXTREMITIES: Normal range of motion. No edema. SKIN: Warm, dry, no rash. NEURO: No focal deficits. Alert and oriented x3. PSYCH: Normal mood and affect. Course Course Emergency Course: this is a 55-year-old female who presented for evaluation after experiencing a fall yesterday. X-rays of right ribs with PA chest were obtained and negative for fracture and pneumothorax. Exam consistent with contusion. She declined analgesics while here in at the time of discharge. Incentive spirometer ordered. Recommend NSAIDs for pain. Follow up with primary provider. Go to the ER for worsening symptoms. Pt in agreement with plan of care. Level of Care: Express Care Visit Vital Signs Vital signs: Vital Signs Temperature 36.1 C L 07/25/25 10:45 Pulse Rate 72 07/25/25 10:45 Respiratory Rate 16 07/25/25 10:45 Blood Pressure 142/79 H 07/25/25 10:45 Pulse Oximetry 98 07/25/25 10:45 Oxygen Delivery Room Air 07/25/25 10:45 Temperature 36.1 C L 07/25/25 10:45 Pulse Rate 72 07/25/25 10:45 Respiratory Rate 16 07/25/25 10:45 Blood Pressure 142/79 H 07/25/25 10:45 Pulse Oximetry 98 07/25/25 10:45 Oxygen Delivery Room Air 07/25/25 10:45 MDM Differential Diagnosis Differential Diagnosis: Rib fracture versus pneumothorax versus hemothorax verses rib contusion versus other Imaging Data Radiologist's impression: ITS Impressions Ribs w/Chest X-Ray 07/25/25 12:24 Impression: No acute fracture or malalignment. Discharge Plan Discharge Clinical Impression: Contusion of ribs Patient Disposition: Home Condition: Stable Instructions: Antibiotic Form, Rib Contusion (ED) Patient Language: Panamanian Prescriptions: No Action tizanidine 4 mg tablet ezetimibe 10 mg tablet losartan 50 mg tablet 50 mg PO DAILY sertraline 100 mg tablet 100 mg PO DAILY simvastatin 40 mg tablet 40 mg PO DAILY hydrochlorothiazide 12.5 mg tablet 12.5 mg PO DAILY Follow-up/Referrals: Chris,Hannah Ramos APRN [Primary Care Provider, Unknown] Time of Disposition: 12:41
== END 2025-07-25 12:44 | disposition home or self-care (01) ==
PROVIDERS: Emergency Provider Nurse Practitioner; PCP Nurse Practitioner Family
DX: S20.211A Contusion of right front wall of thorax, initial encounter (principal); W00.0XXA Fall on same level due to ice and snow, initial encounter; I10 Essential (primary) hypertension; E66.9 Obesity, unspecified; Z68.29 Body mass index [BMI] 29.0-29.9, adult
CPT/HCPCS: 71101; 99213; G0463